=== PATIENT | male | born 1975 | race American Indian/Alaskan Native ===

== ENCOUNTER 2021-03-13 16:40 | Emergency (ER) | payer OTHER ==
[2021-03-13] MEDS ORDERED: LIDOCAINE (1%) 10 MG/1 ML VIAL 20 ML MDV INFILTRATI ONE (17:07)
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
[2021-03-13 18:16] VITALS: BP 139/75
[2021-03-13] MEDS ORDERED: SODIUM CHLORIDE IRRI 500 ML 500 ML IR ONE (18:28)
== END 2021-03-13 18:55 ==
LOC: EEVIPCON 16:40 → ED 16:40
DX: S01.81XA Laceration without foreign body of other part of head, initial encounter (principal); S61.412A Laceration without foreign body of left hand, initial encounter; W26.8XXA Contact with other sharp object(s), not elsewhere classified, initial encounter; Y93.89 Activity, other specified; Y92.89 Other specified places as the place of occurrence of the external cause; Y99.8 Other external cause status
CPT/HCPCS: 99282